=== PATIENT | male | born 1955 | race Caucasian/White ===

== ENCOUNTER 2022-11-16 08:50 | Emergency (ER) | payer MEDICARE, OTHER ==
[2022-11-16] MEDS ORDERED: SODIUM CHLORIDE 0.9% 1,000 ML IV STA (09:17)
[2022-11-16] MEDS ORDERED: METOPROLOL 5 MG/5 ML VIAL IVP STA ×3 (09:17→15:31)
[2022-11-16] MEDS ORDERED: LORazepam 2 MG/ML VIAL IVP STA (09:17)
--- NOTE | 2022-11-16 09:19 | ED Physician Documentation ---
PD HPI CHEST PAIN - Stated complaint Stated Complaint: R NUMBNESS/TINGLING - Chief complaint Chief Complaint: Cardiac - History obtained from History obtained from: Patient, EMS - History of Present Illness Timing - onset: How many hours ago (2), Today Review of Systems Constitutional: denies: Fever, Chills Nose: denies: Rhinorrhea / runny nose, Congestion Throat: denies: Sore throat Respiratory: denies: Cough GI: denies: Nausea, Vomiting, Diarrhea : denies: Dysuria Skin: denies: Rash, Lesions Musculoskeletal: denies: Extremity swelling Neurologic: reports: Generalized weakness. denies: Focal weakness, Numbness PD PAST MEDICAL HISTORY - Past Medical History Cardiovascular: Hypertension, Atrial fibrillation (with ablation x 2, the last being 2014 wiht success. has not had notable afib the past year or so.) - Present Medications Home Medications: Ambulatory Orders Medication Instructions Recorded Confirmed Apixaban [Eliquis] 5 mg PO BID #60 tablet 11/16/22 Ascorbic Acid [Vitamin C] 1 tab PO DAILY 11/16/22 11/16/22 Aspirin [Aspirin EC] 1 tab PO DAILY 11/16/22 11/16/22 Cholecalciferol (Vitamin D3) 2 cap PO DAILY 11/16/22 11/16/22 [Vitamin D3] Ibuprofen 3 tab PO Q6HR PRN 11/16/22 11/16/22 Metoprolol Succinate [Toprol Xl] 25 mg PO BID #60 tablet 11/16/22 Thiamine [Vitamin B-1] 100 mg PO DAILY #30 tablet 11/16/22 - Allergies Allergies/Adverse Reactions: Allergies Allergy/AdvReac Type Severity Reaction Status Date / Time No Known Drug Allergies Allergy Verified 11/16/22 09:00 PD ED PE NORMAL - Vitals Vital signs reviewed: Yes - General General: Alert and oriented X 3, Well developed/nourished - HEENT HEENT: Pharynx benign - Neck Neck: Supple, no meningeal sign, No adenopathy - Cardiac Cardiac: No murmur. No: RRR (irregular and rapid 140s. ) - Respiratory Respiratory: No respiratory distress, Clear bilaterally - Abdomen Abdomen: Soft, Non tender - Derm Derm: Normal color, Warm and dry - Extremities Extremities: Normal ROM s pain, No edema, No calf tenderness / cord - Neuro Neuro: Alert and oriented X 3, No motor deficit, Normal speech Results - Vitals Vitals: Vital Signs - 24 hr 11/16/22 11/16/22 11/16/22 09:00 09:40 09:50 Temperature 36.9 C Heart Rate 136 H 104 H 100 Respiratory 18 17 18 Rate Blood Pressure 167/102 H 120/79 132/87 H O2 Saturation 96 94 91 L 11/16/22 11/16/22 11/16/22 10:04 11:00 12:00 Temperature Heart Rate 98 84 96 Respiratory 19 16 16 Rate Blood Pressure 131/86 H 129/81 H 136/83 H O2 Saturation 90 L 98 95 11/16/22 11/16/22 11/16/22 12:14 12:31 12:34 Temperature Heart Rate 100 99 96 Respiratory 18 18 17 Rate Blood Pressure 141/90 H 148/86 H O2 Saturation 97 99 98 11/16/22 11/16/22 11/16/22 12:37 12:59 13:30 Temperature Heart Rate 95 102 H Respiratory 20 17 Rate Blood Pressure 140/88 H 126/83 H O2 Saturation 96 94 86 L Oxygen O2 Source Room air - EKG (time done) 8:56 EKG releavant findings:: EKG personally interpreted by author of this note. Relevant findings are: Rate: Rate (enter#) (126) Rhythm: Atrial flutter (3:1) [place]: Normal Ischemia: Normal ST segments. No: ST elevation c/w ischemia, ST depression 12:38 EKG releavant findings:: EKG personally interpreted by author of this note. Relevant findings are: Rate: Rate (enter#) (89) Rhythm: Atrial flutter (3:1) QRS: Normal Ischemia: Normal ST segments. No: ST elevation c/w ischemia, ST depression Compare to prior EKG: Unchanged from prior EKG 15:41 EKG releavant findings:: EKG personally interpreted by author of this note. Relevant findings are: Rate: Rate (enter#) (76) Rhythm: NSR [place]: Normal Intervals: Normal [place] QRS: Normal Ischemia: Normal ST segments. No: ST elevation c/w ischemia, ST depression - Labs Labs: Laboratory Tests 11/16/22 11/16/22 11/16/22 09:00 09:00 09:00 WBC 6.2 RBC 4.97 Hgb 16.0 Hct 49.3 MCV 99.2 H MCH 32.2 H MCHC 32.5 RDW 14.2 Plt Count 186 MPV 10.1 Neut # (Auto) 3.1 Lymph # (Auto) 2.1 [place] # (Auto) 0.8 Eos # (Auto) 0.1 Baso # (Auto) 0.0 Absolute Nucleated RBC 0.00 Nucleated RBC % 0.0 Sodium 137 Potassium 4.4 Chloride 101 Carbon Dioxide 25 Anion Gap 11.0 BUN 12 Creatinine 0.9 Estimated GFR (MDRD) 84 L Glucose 102 H Calcium 9.2 Magnesium 2.0 Total Bilirubin 0.9 AST 94 H ALT 62 H Alkaline Phosphatase 73 Troponin I High Sens 11.6 B-Natriuretic Peptide Total Protein 7.3 Albumin 3.5 Globulin 3.8 Albumin/Globulin Ratio 0.9 L Lipase 49 Ethyl Alcohol < 5.0 11/16/22 09:00 WBC RBC Hgb Hct MCV MCH MCHC RDW Plt Count MPV Neut # (Auto) Lymph # (Auto) [place] # (Auto) Eos # (Auto) Baso # (Auto) Absolute Nucleated RBC Nucleated RBC % Sodium Potassium Chloride Carbon Dioxide Anion Gap BUN Creatinine Estimated GFR (MDRD) Glucose Calcium Magnesium Total Bilirubin AST ALT Alkaline Phosphatase Troponin I High Sens B-Natriuretic Peptide 156 H Total Protein Albumin Globulin Albumin/Globulin Ratio Lipase Ethyl Alcohol - Rads (name of study) chest xray Relevant Findings:: Prelim report reviewed, EMP independent interpretation of test (enlartged heart. no CHF nor infiltrates. ), See rad report Procedures - Cardioversion - Major 150 Indication: Tachyarrhythmia Risks, benefits, alternatives explained to: Pt Prep: IV, O2, groundwater monitoring technician, Pulse ox, Airway equip CS via: Pads, AP approach Sync: Biphasic, 150j Performed by: ED 2 Indication: Tachyarrhythmia Risks, benefits, alternatives explained to: Pt Prep: IV, O2, groundwater monitoring technician, Pulse ox, Airway equip CS via: Pads, AP approach Sync: Biphasic, 200j Complications: Other (none) Performed by: ED PD Medical Decision Making - ED course Complexity details: considered differential (The patient with a remote history of atrial for flutter with ablations x2, last one in 2014. Have been doing well without any dysrhythmias. Not on any anticoagulant nor beta calcium blockers. Onset of feeling lightheaded with arm tingling and some dyspnea this morning. In atrial flutter 160s.), d/w patient, d/w family () Social Determinants of Health: The patient when asked about alcohol use did claim 3-4 liquor drinks or wine per day and not every day. However on requestioning he did admits to at least 3-4 and daily. He can go a few days without alcohol and not necessarily feel withdrawal. Other considerations are that they have recently moved to the area and are still establishing primary care. He will need to establish cardiology locally as well. Drug Therapy Requiring Monitoring for Toxicity: IV doses of metoprolol to slow heart rate. 5 mg iv x 2 given. slowing of heart rate without drop in bp. ED course: The patient presented with combination of symptoms of onset of lightheadedness and some shortness of breath and a feeling of some numbness in the right arm. He states this was abruptly this morning after already being awake. He did not notice fast heart rate per se. He was concerned about it. EMS was called and found him to be in a apparent atrial fibrillation with fast response at 160s. His blood pressure was adequate. Here in the ER the patient was given metoprolol 5 mg IV to help slow down the heart rate. He had a EKG, chest x-ray, blood tests to look for more significant problems going on. His EKG was consistent with atrial flutter. Chest x-ray showed some cardiomegaly but no signs of CHF. His heart rate did slow down with the 2 doses of metoprolol IV. He did not have any drop in blood pressure and remained comfortable. However he remained in atrial flutter with now a 3-1 conduction. Given that he typically is not in atrial fibrillation that he knows of and has not felt badly for many years like this, it seems reasonable to correlate his symptoms with the atrial fibrillation and presume it was a new onset this morning. As such I discussed it with him and he was in agreement for trying cardioversion. He was sedated with propofol and cardioversion attempt x2 without any improvement. He remained in atrial flutter. He was stable with regard to heart rate under 100 and blood pressure good and full alertness. I contacted the hospitalist to discuss the case and the patient was to be admitted under observation for further rate control and evaluation. Orders were written and the patient was about to go to [facility] unit when he converted to sinus rhythm on his own. He felt well. I discussed this with the hospitalist who is skilled in cardiology and Dr. Baron came to the ER and did an echocardiogram. She found him to have a mild cardiomyopathy with ejection fraction of 40 to 45% and enlarged heart. Presumption was from alcohol use as the most likely culprit. The patient was to be started on metoprolol orally and Eliquis and thiamine at the suggestion of the hospitalist. She wrote prescriptions for the patient. I did provide the patient with referral numbers for the cardiology groups of [place] and [place]. They will call to set up a follow-up appointment. They are also have an upcoming appointment with a local primary care as well. They state they are undergoing the initial paperwork for the office. The patient is stable and will be discharged at this time. He was coached to cut down and stop alcohol. It is likely he will need some social and biopsy medical support for that. His is present with him and they will seek out medical help with her new primary care to reduce use. The patient was discharged from the department in stable condition. - Critical Care Time(min): 60 Time Includes: Direct patient care, Reassess patient, Document care, Medical consult, See progress note (rate control rapid atrial flutter. iv medications, cardioversion. 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
[2022-11-16 09:25] LABS: BASOPHILS % (AUTO) 0.5 %; EOSINOPHILS # (AUTO) 0.1 10^3/uL (0.0-0.7); EOSINOPHILS % (AUTO) 2.2 %; HCT - HEMATOCRIT 49.3 % (42.0-52.0); LYMPHOCYTES # (AUTO) 2.1 10^3/uL (1.5-3.5); LYMPHOCYTES % (AUTO) 33.2 %; MEAN CORPUSCULAR HEMOGLOBIN 32.2 pg (27.0-31.0); MEAN CORPUSCULAR HGB CONC 32.5 g/dL (32.0-36.0); MEAN CORPUSCULAR VOLUME 99.2 fL (80.0-94.0); MEAN PLATELET VOLUME 10.1 fL (7.4-11.4); MONOCYTES # (AUTO) 0.8 10^3/uL (0.0-1.0); MONOCYTES % (AUTO) 13.5 %; NEUTROPHILS # (AUTO) 3.1 10^3/uL (1.5-6.6); NEUTROPHILS % (AUTO) 50.3 %; PLT - PLATELET COUNT 186 10^3/uL (130-450); RED BLOOD COUNT 4.97 10^6/uL (4.70-6.10); RED CELL DISTRIBUTION WIDTH 14.2 % (12.0-15.0); WHITE BLOOD COUNT 6.2 x10^3/uL (4.8-10.8)
[2022-11-16 09:35] LABS: ALBUMIN 3.5 g/dL (3.2-5.5); ALBUMIN/GLOBULIN RATIO 0.9 (1.0-2.2); ALKALINE PHOSPHATASE 73 IU/L (42-121); ALT ALANINE AMINOTRANSFERASE 62 IU/L (10-60); AST ASPARTATE AMINOTRANSFERASE 94 IU/L (10-42); BILIRUBIN,TOTAL 0.9 mg/dL (0.2-1.0); BUN - BLOOD UREA NITROGEN 12 mg/dL (6-20); CALCIUM 9.2 mg/dL (8.5-10.3); CARBON DIOXIDE - CO2 25 mmol/L (21-32); CHLORIDE 101 mmol/L (101-111); CREATININE 0.9 mg/dL (0.6-1.2); ETOH - ETHANOL < 5.0 mg/dL; GFR - MDRD 84 (>89); GLUCOSE 102 mg/dL (70-100); LIPASE 49 U/L (22-51); POTASSIUM 4.4 mmol/L (3.5-5.0); SODIUM 137 mmol/L (135-145); TOTAL PROTEIN 7.3 g/dL (6.7-8.2)
--- NOTE | 2022-11-16 09:49 | XRAY Report ---
PROCEDURE: Chest 1 View X-Ray INDICATIONS: Chest Pain TECHNIQUE: One view of the chest was acquired. COMPARISON: None. FINDINGS: Surgical changes and devices: None. Lungs and pleura: No pleural effusions or pneumothorax. Lungs are clear. Mediastinum: Mediastinal contours appear normal. Heart size is normal. Bones and chest wall: No suspicious bony lesions. Overlying soft tissues appear unremarkable. IMPRESSION: 1. Cardiomegaly. 2. No acute abnormality. Reviewed by: Garry Rodriguez on 11/16/2022 8:48 AM [facility] Approved by: Garry Rodriguez on 11/16/2022 8:48 AM [facility] Station ID: [id number]
[2022-11-16] MEDS ORDERED: PROPOFOL 200 MG/20 ML VIAL IVP STA (11:33)
--- NOTE | 2022-11-16 14:42 | CT Report ---
PROCEDURE: HEAD WO INDICATIONS: right arm tingling TECHNIQUE: Noncontrast 4.5 mm thick angled axial sections acquired from the foramen magnum to the vertex. For r adiation dose reduction, the following was used: automated exposure control, adjustment of mA and/or kV according to patient size. COMPARISON: None. FINDINGS: Image quality: Excellent. CSF spaces: Basal cisterns are patent. No extra-axial fluid collections. Ventricles are normal in size and shape. Brain: No midline shift. No intracranial masses or hemorrhage. Red-white matter interface is norm al. Skull and face: Calvarium and visualized facial bones are intact, without suspicious lesions. Sinuses: Visualized sinuses and mastoids are clear. IMPRESSION: No acute intracranial abnormality. Reviewed by: Garry Rodriguez on 11/16/2022 1:41 PM [facility] Approved by: Garry Rodriguez on 11/16/2022 1:41 PM [facility] Station ID: [id number]
[2022-11-16] MEDS ORDERED: SODIUM CHLORIDE FLUSH 0.9% 10 ML SYRINGE IVP PRN (14:54)
[2022-11-16] MEDS ORDERED: ACETAMINOPHEN 325 MG TABLET PO PRN (15:00)
[2022-11-16] MEDS ORDERED: ONDANSETRON 4 MG/2 ML VIAL IVP PRN (15:00)
[2022-11-16] MEDS ORDERED: LORazepam 2 MG/ML VIAL IVP PRN (15:08)
--- NOTE | 2022-11-16 15:23 | HISTORY & PHYSICAL EXAMINATION ---
Chief Complaint - Chief Complaint Chief Complaint: Arm numbness History of Present Illness - Admitted From Admitted From:: ED - History Obtained From History obtained from: ED provider and thre patient History - Past Medical History Cardiovascular: reports: Hypertension, Atrial flutter Respiratory: reports: None Neuro: reports: None Endocrine/Autoimmune: reports: None GI: reports: None : reports: None HEENT: reports: None Psych: reports: None Musculoskeletal: reports: None Derm: reports: None MRSA Hx?: No - Past Surgical History Ortho: reports: Rotator cuff repair, Other Cardiovascular: reports: Cardiac catheterization, Other - Family & Social History Living arrangement: At home Living Situation: With spouse/s.o. Meds/Allgy - Home Medications Home Medications: Ambulatory Orders Medication Instructions Recorded Confirmed Apixaban [Eliquis] 5 mg PO BID #60 tablet 11/16/22 Ascorbic Acid [Vitamin C] 1 tab PO DAILY 11/16/22 11/16/22 Aspirin [Aspirin EC] 1 tab PO DAILY 11/16/22 11/16/22 Cholecalciferol (Vitamin D3) 2 cap PO DAILY 11/16/22 11/16/22 [Vitamin D3] Ibuprofen 3 tab PO Q6HR PRN 11/16/22 11/16/22 Metoprolol Succinate [Toprol Xl] 25 mg PO BID #60 tablet 11/16/22 Thiamine [Vitamin B-1] 100 mg PO DAILY #30 tablet 11/16/22 - Allergies Allergies/Adverse Reactions: Allergies Allergy/AdvReac Type Severity Reaction Status Date / Time No Known Drug Allergies Allergy Verified 11/16/22 09:00 Exam - Vital Signs Vital Signs: Vital Signs x48h Temp Pulse Resp BP Pulse Ox 11/16/22 13:30 86 L 11/16/22 12:59 102 H 17 126/83 H 94 11/16/22 12:37 95 20 140/88 H 96 11/16/22 12:34 96 17 98 11/16/22 12:31 99 18 148/86 H 99 11/16/22 12:14 100 18 141/90 H 97 11/16/22 12:00 96 16 136/83 H 95 11/16/22 11:00 84 16 129/81 H 98 11/16/22 10:04 98 19 131/86 H 90 L 11/16/22 09:50 100 18 132/87 H 91 L 11/16/22 09:40 104 H 17 120/79 94 11/16/22 09:00 36.9 C 136 H 18 167/102 H 96 - Physical Exam General Appearance: positive: No acute distress Conclusion/Plan - Problem List (1) New onset atrial flutter Conclusion/Plan: Since the patient had an old history of A-fib, not present in about 8 years, this is new onset of an atrial dysrhythmia. Etiologies could be thyroid axis, alcohol binging, acute VT, hypertension [id number], any pulmonary disease. The patient does have cardiomegaly on chest x-ray making causing suspicion for CHF. Plan: Place the patient in Observation status, on telemetry Continue with beta-blockers, will give these orally, since IV beta-blockers were successful in slowing the rate Check another set of troponins to rule out an VT Check TSH to rule out hyperthyroidism Obtain an Echocardiogram given the cardiomegaly Depending on results of the above, we will calculate his CHADSVasc score and recommend anticoagulation if needed (2) Atrial flutter with rapid ventricular response Conclusion/Plan: As above in #1 (3) Cardiomegaly Conclusion/Plan: This patient's admission EKG final impressions is cardiomegaly however in the body of the report it says normal heart size. I contacted the radiologist Garry Campbell MD and he confirmed that the reading is in fact cardiomegaly Plan: Echocardiogram ordererd (4) Elevated LFTs Conclusion/Plan: AST 94, ALT 62, with normal bilirubin and alk phos, are very likely from his alcohol use Plan: Avoid hepatotoxins Follow LFTs daily (5) Alcohol use Conclusion/Plan: Depending on if there has been recent alcohol binging, this could be the main cause of the atrial flutter occurrence Plan: We will order CIWA protocol with Ativan as needed Will order daily thiamine and multivitamin We will check his liver synthesis by obtaining an INR (6) HTN (hypertension) Conclusion/Plan: As per Hx Plan: Order low-salt diet We will resume appropriate cardiac meds, once the medication list is reconciled by pharmacy - Lab Results Fish Bones: 11/16/22 09:00 11/16/22 09:00 - Diagnostic Imaging Results Diagnostic Imaging Results: positive: Final report reviewed
[2022-11-16 15:35] LABS: PT - PROTHROMBIN TIME 11.4 secs (9.9-12.6)
[2022-11-16] MEDS ORDERED: METOPROLOL SUCCINATE 25 MG TABLET PO STA (16:00)
[2022-11-16 16:03] LABS: MUDS CUTOFF CONCENTRATIONS CUTOFF CONC BELOW:
--- NOTE | 2022-11-16 16:06 | PHARMACY PROGRESS NOTE ---
- Best Possible Medication History Admit Date and Time: 11/16/22 1454 Processed by: Pharmacy Medication History completed: Yes Patient Interview: Completed Secondary Source(s): Spouse/Significant other As the person ultimately responsible for medication therapy, providers are able to order a medication from an existing home medication list in [facility] via the "Reconcile Routine" prior to Confirmation of that medication by direct support staff. Such practice is discouraged except when the physician, in their clinical judgment, deems that a medical need exists for a medication without regard to previous use.
[2022-11-16 16:12] LABS: AMPHETAMINE SCREEN,URINE NEGATIVE (NEGATIVE); BARBITURATE SCREEN,UR NEGATIVE (NEGATIVE); BENZODIAZEPINES SCREEN, URINE NEGATIVE (NEGATIVE); COCAINE SCREEN URINE NEGATIVE (NEGATIVE); METHADONE SCREEN, URINE NEGATIVE (NEGATIVE); METHAMPHETAMINES SCREEN, URINE NEGATIVE (NEGATIVE); OPIATE SCREEN, URINE NEGATIVE (NEGATIVE); OXYCODONE SCREEN, URINE NEGATIVE (NEGATIVE); PROPOXYPHENE SCREEN, URINE NEGATIVE (NEGATIVE); THC CANNABINOID SCREEN, URINE NEGATIVE (NEGATIVE); TRICYCLIC ANTIDEPRESSANT,URINE NEGATIVE (NEGATIVE)
[2022-11-16] MEDS ORDERED: SODIUM CHLORIDE FLUSH 0.9% 10 ML SYRINGE IVP SCH (17:00)
--- NOTE | 2022-11-16 17:06 | CONSULTATION NOTE ---
Referring Provider Name of Referring Provider:: Dr Rivera Consult Date: 11/16/22 Chief Complaint - Chief Complaint Chief Complaint: R hand and R foot numbness History of Present Illness - History Obtained From History obtained from: ED provider and the patient - History of Present Illness HPI Comment/Other: This is a 67-year-old male with a history of prior A-fib and Atrial flutter, for which he underwent ablations x3, last one was in 2014. Used to be on metoprolol and Xarelto and then Metoprolol and daily aspirin. These were all stopped about 8 years ago. He is now on no cardiac medications or anticoagulants. He moved here from [place] 5 mos ago and has no PCP yet. He says he only takes vitamin C and occasional Motrin. Yesterday morning he awoke with left hand numbness. It lasted approximately 1 to 2 hours and then resolved. This morning he developed sudden onset of R hand and foot numbness and presented to the ER with this complaint. Those symptoms subsided in about 3 hours, up while he was in the ED. Work-up in the ED with an EKG showed that he is in atrial flutter with RVR. The patient received IV metoprolol pushes x2 which helped improve his heart rate to 80 and the underlying sawtooth flutter waves were seen. Other labs were essentially unremarkable except for elevated liver function tests. The patient does report he drinks 3 to 4 glasses of alcohol. (When I saw the patient, he gave me details that he has 2 cocktails before dinner and then 1 glass of wine with dinner and 1 wine after dinner). The patient then underwent elective cardioversion in the ER with conscious sedation. He underwent synchronized defibrillation with 150 J and then repeated attempt with 200 J. These did not successfully convert him into normal rhythm. He remained in atrial flutter. The ED provider then spoke to me regarding this patient, to place him in Observation for further monitoring and treatment of his new onset of atrial flutter. The patient then was taken off telemetry briefly to go to the restroom in the ED and give a urine sample. When he came back and was put on telemetry he was in normal sinus rhythm at a rate of 76. The ED provider reached out to me on the Hospitalist Team again and this time requested a consult be done in the ED. History - Past Medical History Cardiovascular: reports: Hypertension, Atrial flutter Respiratory: reports: None Neuro: reports: None Endocrine/Autoimmune: reports: None GI: reports: None : reports: None HEENT: reports: None Psych: reports: None Musculoskeletal: reports: None Derm: reports: None MRSA Hx?: No - Past Surgical History Ortho: reports: Rotator cuff repair Cardiovascular: reports: Cardiac catheterization (11 yrs ago: normal coronaries, per pt) - Family & Social History Living arrangement: At home Living Situation: With spouse/s.o. Social History Notes: Patient is a non-smoker. The patient drinks 3-4 alcoholic drinks per day (2 cocktails before dinner and wine with and after dinner). He has never gone through withdrawal. - Substance History Abuse: Recurrent use of substance despite neg consequences: Alcohol Meds/Allgy - Home Medications Home Medications: Ambulatory Orders Medication Instructions Recorded Confirmed Apixaban [Eliquis] 5 mg PO BID #60 tablet 11/16/22 Ascorbic Acid [Vitamin C] 1 tab PO DAILY 11/16/22 11/16/22 Aspirin [Aspirin EC] 1 tab PO DAILY 11/16/22 11/16/22 Cholecalciferol (Vitamin D3) 2 cap PO DAILY 11/16/22 11/16/22 [Vitamin D3] Ibuprofen 3 tab PO Q6HR PRN 11/16/22 11/16/22 Metoprolol Succinate [Toprol Xl] 25 mg PO BID #60 tablet 11/16/22 Thiamine [Vitamin B-1] 100 mg PO DAILY #30 tablet 11/16/22 - Allergies Allergies/Adverse Reactions: Allergies Allergy/AdvReac Type Severity Reaction Status Date / Time No Known Drug Allergies Allergy Verified 11/16/22 09:00 Review of Systems - Cardiovascular Cariovascular: reports: Lightheadedness (Dizziness when he had the right hand and right foot numbness to) - All Other Systems All Other Systems: reports: Reviewed and negative Exam - Vital Signs Vital Signs: Vital Signs x48h Pulse Resp BP Pulse Ox 11/16/22 16:55 67 17 11/16/22 15:30 78 24 134/81 H 95 11/16/22 13:30 86 L 11/16/22 12:59 102 H 17 126/83 H 94 11/16/22 12:37 95 20 140/88 H 96 11/16/22 12:34 96 17 98 11/16/22 12:31 99 18 148/86 H 99 11/16/22 12:14 100 18 141/90 H 97 11/16/22 12:00 96 16 136/83 H 95 11/16/22 11:00 84 16 129/81 H 98 11/16/22 10:04 98 19 131/86 H 90 L 11/16/22 09:50 100 18 132/87 H 91 L 11/16/22 09:40 104 H 17 120/79 94 - Physical Exam General Appearance: positive: No acute distress, Alert, Other (Mildly diaphoretic. No tremor.) Eyes Bilateral: positive: Normal inspection, EOMI, Other (Nonicteric. No nystagmus.) ENT: positive: Other (Low-set malformed ears) Neck: positive: Nml inspection, No JVD Respiratory: positive: No respiratory distress Cardiovascular: positive: Regular rate & rhythm, No murmur Abdomen: positive: Non-tender, No distention Skin: positive: Warm, Other (Mildly diaphoretic) Extremities: positive: Non-tender, No pedal edema Neurologic/Psychiatric: positive: Oriented x3, Motor nml, Sensation nml Conclusion/Plan - Problem List (1) New onset atrial flutter Conclusion/Plan: Since the patient had an old history of A-fib, not present in about 8-10 years, this is new onset of an atrial flutter. Etiologies could be thyroid disease, alcohol use, acute PA, hypertension or any pulmonary disease. The patient does have cardiomegaly on chest x-ray making CHF and Alcoholic cardiomyopathy, a likely possibility. Because the patient was about to be placed in Observation and monitored on telemetry, I have already run a second set of troponins which are negative the refore ruling out PA. An Echocardiogram was done (see below) and he does have a cardiomyopathy. The patient was disconnected from the monitor for just several minutes to use the bathroom and urinate and when he came back and was reattached to telemetry, he himself saw that he was in normal sinus rhythm, the rate was 76. He did not notice the difference of when he came out of atrial flutter and into NSR. Thus, I suspect he may have had paroxysmal atrial flutter before today. Recommendation: Metoprolol IV 2 pushes did not convert him into sinus rhythm but did slow him down. Therefore, I recommend continuing with medications for rate control and recommend starting anticoagulation. (2) Atrial flutter with rapid ventricular response Conclusion/Plan: As in #1 (3) Cardiomegaly Conclusion/Plan: This patient's CXR final impressions says cardiomegaly however in the body of the report, it says normal heart size. I contacted the radiologist Garry Campbell MD and he confirmed that the reading is in fact cardiomegaly Commendation: Echocardiogram is needed and was done (see below) (4) Cardiomyopathy Conclusion/Plan: As a board-certified Benefits Assistant, credentialed to perform and interpret Echocardiograms, I performed a complete Echocardiogram on this patient while in the ER Indication: Atrial flutter Echo findings: Moderate enlargement of the left atrium, normal right atrial size. Mildly dilated aortic root diameter with mural atherosclerosis Upper limit of normal left ventricular size, normal LV wall thickness, mild to moderate global LV hypokinesis, LVEF 40%. Doppler shows mild LV diastolic dysfunction is present (grade 1). Right ventricular size mildly dilated. RV function mildly depressed as well The aortic valve has mild sclerosis. The mitral and tricuspid valves appear structurally normal. The pulmonic valve was never well seen Doppler of the valves shows mild mitral regurgitation and mild to moderate aortic regurgitation. No pericardial effusion seen. 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 Recommendation: Stop drinking alcohol in excess. Begin a beta-sandra for rate control, if his atrial flutter should return, and also as treatment for the cardiomyopathy He needs an appointment to a PCP for assessing vital signs on the new metoprolol and adding an BILLY or ARB and also Spironolactone. These findings and recommendations were all discussed with the patient, and was at bedside. I have electronically prescribed Toprol-XL 25 mg p.o. twice daily to his [facility] in [place]. 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 Since he cannot feel when he goes into [id number], he may be going in and out any time and those are the moments that cause clots to break off, especially from the left atrial appendage, and travel up to the head. Recommendation: The patient should be put on a DOAC. I recommend Eliquis 5 mg p.o. twice daily. This is a better choice than the previous Xarelto that he had (which is known to cause gastric bleeding more so than Coumadin). I have electronically prescribed Eliquis 5 mg BID to his [facility] in [place]. (6) Elevated LFTs Conclusion/Plan: The elevated AST 94, ALT 62, with normal bilirubin and alk phos, are very likely from his alcohol use. Recommendation: I discussed at length the cardiac problems with longstanding high amounts of daily alcohol use, with the patient and at bedside. I advised that he taper down quickly from 4 drinks a day down to 1 for the next 2 days then stop daily alcohol use. Taking Thiamine 100 mg p.o. daily was advised and I electronically prescribed this to his [facility] pharmacy in [place] (7) Alcohol use Conclusion/Plan: As above in #6 (8) HTN (hypertension) Conclusion/Plan: He describes that he has not been on any blood pressure medicines since the metoprolol was stopped about 8 to 10 years ago. He also admits he used to use a lot of salt. Now he specifically knows to eat a low-salt diet. Recommendation: Metoprolol should help with control of blood pressure going forward. I reiterated the need for a low-salt diet to the patient, and was at bedside. All of the above Diagnoses and recommendations were discussed with Dr. Rivera in the ED. Thank you for allowing me to participate in the care of this patient. - Lab Results Fish Bones: 11/16/22 09:00 11/16/22 09:00 - Diagnostic Imaging Results Diagnostic Imaging Results: positive: Final report reviewed
[2022-11-16] MEDS ORDERED: APIXABAN 5 MG TABLET PO STA (17:51)
[2022-11-16] MEDS ORDERED: THIAMINE 100 MG TABLET PO STA (17:52)
[2022-11-16 18:19] VITALS: BP 153/90
[2022-11-17] MEDS ORDERED: PRENATAL VITAMIN TABLET PO SCH (08:00)
[2022-11-17] MEDS ORDERED: THIAMINE 100 MG TABLET PO SCH (09:00)
== END 2022-11-16 18:27 | disposition home or self-care (01) ==
LOC: ED 08:50 → MS2 14:54 → UNDOADMOB 14:54 → OBS 14:54 → UNDODISOB 19:00
DX: I48.92 Unspecified atrial flutter (principal); I42.6 Alcoholic cardiomyopathy
CPT/HCPCS: 36415; 70450; 71045; 80053; 80306; 83690; 83735; 83880; 84484; 85025; 85610; 92960; 93005; 96374; 96375; 96376; 99152; 99153; 99291; A9270; G0480; J2060; 80320; 94770

== ENCOUNTER → 2022-11-16 | Outpatient (CLI) | payer MEDICARE, OTHER | END | disposition critical access hospital (66) | LOC: EMS 08:35 | DX: R42 Dizziness and giddiness (principal); R20.0 Anesthesia of skin; R00.0 Tachycardia, unspecified | CPT/HCPCS: A0425; A0429 ==